=== PATIENT | female | born 1995 | race Caucasian/White ===

== ENCOUNTER 2022-10-06 09:00 | Outpatient (AMB) | payer BC, SELFPAY ==
--- NOTE | 2022-10-06 09:20 | MHC.OFFWIV ---
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 In the last week patient has been complaining of headaches, slurred speech, feeling tired. She was seen at a local emergency room where a CT scan and chest x-ray was done. The CT scan of the head was unremarkable. She was sent home on no medications. Patient reports that she has history of anxiety in the past. She could not tolerate medications due to skin reactions. Physical Exam Vital Signs: Last Vital Signs Temp 96.5 F L 10/06/22 09:25 Pulse 94 10/06/22 09:25 BP 112/60 10/06/22 09:25 Pulse Ox 96 10/06/22 09:25 Oxygen Delivery Method Room Air 10/06/22 09:25 Const General: cooperative and healthy appearing Nutritional Appearance: well nourished Orientation/consciousness: patient oriented x3 Limitations: no limitations HEENT Head: Yes normal to inspection Eyes General: appearance normal, both eyes and all related structures Neck Neck: Yes normal visual inspection Chest Chest palpation & inspection: normal palpation of entire chest wall Resp Effort & Inspection: normal respiratory effort Cardio Other: Tachycardia. Neuro General: patient oriented x3 Assessment & Plan Assessment & Plan (1) Generalized anxiety disorder: Code(s): F41.1 - Generalized anxiety disorder Plan: Thyroid disorder should be ruled out. Blood work has been ordered. Clonazepam and meloxicam called in. Patient was encouraged to see a primary care provider for start of regular anxiety medications. Orders: Orders Basic Metabolic Panel Today F41.1 - Generalized anxiety disorder Liver Panel Today F41.1 - Generalized anxiety disorder Thyroid Stimulating Hormone Today F41.1 - Generalized anxiety disorder Complete Blood Count no Diff Today F41.1 - Generalized anxiety disorder UA and rflx microscopic Today F41.1 - Generalized anxiety disorder Erythrocyte Sedimentation Rate Today F41.1 - Generalized anxiety disorder Medications: New clonazepam (Klonopin) administer 30 minutes before bedtime 0.5 mg PO BEDTIME 10 tabs 0RF meloxicam 15 mg PO DAILY 14 tabs 0RF Coding Level of Care Code Est Pt Level 4 (05304) Diagnoses Generalized anxiety disorder F41.1
[2022-10-06 09:25] VITALS: BP 112/60; PULSE 94; TEMP 35.8; O2SAT 96
== END 2022-10-06 10:06 | disposition home or self-care (01) ==
PROVIDERS: Visit Provider Internal Medicine
DX: F41.1 Generalized anxiety disorder (principal)
CPT/HCPCS: 99214

== ENCOUNTER 2022-11-19 09:03 | Outpatient (AMB) | payer BC, SELFPAY ==
[2022-11-19 09:12] VITALS: BP 116/70; PULSE 85; RESP 12; TEMP 36.4; O2SAT 99; BMI 21.1
--- NOTE | 2022-11-19 09:12 | MHC.PC.OV ---
Vital Signs 11/19/22 09:12 Height 5 ft 9 in Weight 143 lb BMI 21.1 BP 116/70 Blood Pressure Location Lt brachial Position Sitting Respiration 12 Pulse 85 Pulse Source Pulse Oximeter Temp 97.6 F Temp Source Temporal Artery Scan Pulse Oximetry (%) 99 Oxygen Delivery Method Room Air Intake Visit Reasons: New patient-requesting physical Intake Note: Patient states that she has been more concerned about her mental health. Patient states that she would like referrals to OBGYN, Cardiology, Dermatology. Patient would like cardiology referral due to her having open heart surgery as a child. 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 Required: No Accompanied by: Self / Same As Patient Allergies Penicillins Adverse Reaction (Intermediate, Verified 11/19/22 09:46) Rash Medication List - Last Reconciled 11/19/22 by Paloma Pastor CNP alprazolam (Xanax) 0.25 mg PO DAILY PRN Tobacco use date assessed: 11/19/22 Dental Screening Dental Screen Date: 11/19/22 Did you have a dental visit in the last 12 months?: Yes Did you have a dental problem in the last 6 months where you did not have access to dental care?: No Was dental information given to patient?: Patient has dentist HPI HPI Comments History of Present Illness Details 27-year-old female presents to [facility]. She notes she relocated to [facility] from [place] in July 2022. She was last evaluated by her from PCP in [place] a month ago. She notes she had routine blood work done at [facility] 2 weeks ago. She reports PMH significant for generalized anxiety disorder and depression. 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 She states she has weekly telemedicine with a therapist. She notes she takes Xanax 0.25 mg daily as needed with controlled symptoms. She reports occasional feeling of palpations which she states may be related to anxiety. She denies acute symptoms at this time. She requests cardiology evaluation. She notes she is sexually active, in a monogamous relationship, and has no concerns for STD. She states her last pap smear test was on March 2022: normal. She requests to be referred to GIS DATABASE ADMINISTRATOR in [place]. She reports facial bumps and moles on her neck. She requests dermatology referral. 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 1. Little interest or pleasure in doing things: several days 2. Feeling down, depressed, or hopeless: several days 3. Trouble falling or staying asleep, or sleeping too much: several days 4. Feeling tired or having little energy: several days 5. Poor appetite or overeating: several days 6. Feeling bad about yourself - or that you are a failure or have let yourself or your family down: several days 7. Trouble concentrating on things, such as reading the newspaper or watching television: several days 8. Moving or speaking so slowly that other people could have noticed. Or the opposite - being so fidgety or restless that you have been moving around a lot more than usual: several days 9. Thoughts that you would be better off or of hurting yourself in some way: not at all Total score: 8 Depression Screening Interpretation: Positive Depression Screening Follow-up: Existing condition and In treatment Source: Developed by Drs. Darius Bradley, Susy Hagan, Hayes Lange and colleagues, with an educational sharda from [employer]. Thrive Questionnaire Date Thrive assessed: 11/19/22 I am a: Patient What is your living situation today?: I have a steady place to live Within the past 12 months, did the food you bought not last and you didn't have the money to get more?: Never true Within the past 12 months, did you worry whether your food would run out before you got money to buy more?: Never true Do you have trouble paying for medicines?: No Do you have trouble getting transportation to medical appointments?: No Do you have trouble paying your heating and electricity bill?: No Do you have trouble taking care of your child, family member or friend?: No Do you have trouble with day-to-day activities such as bathing, preparing meals, shopping, managing finances, etc.?: No Are you currently unemployed and looking for a job?: No Are you interested in more education?: No Please select the resources that you would like help with: None Currently or been in a relationship where the following occur: no concerns reported AUDIT C Alcohol Use Questionnaire (AUDIT-C) 1. How often do you have a drink containing alcohol?: Monthly or less 2. How many drinks containing alcohol do you have on a typical day when you are drinking?: 1 or 2 3. How often do you have six or more drinks on one occasion?: Never Total Score: 1 ELAINE-7 AMB Questionnaire ELAINE-7 Date ELAINE - 7 assessed: 11/19/22 Feeling nervous, anxious, or on edge: 3 = Nearly every day Not being able to stop or control worryin = More than half the days Worrying too much about different things: 2 = More than half the days Trouble relaxin = More than half the days Being so restless that it is hard to sit still: 1 = Several days Becoming easily annoyed or irritable: 1 = Several days Feeling afraid as if something awful might happen: 1 = Several days Total ELAINE-7 score (0-4 normal; 5-9 mild; 10-14 moderate; 15-21 severe): 12 Source: Developed by Drs. Darius Bradley, Susy Hagan, Hayes Lange and colleagues, with an educational sharda from [employer]. Review of Systems Const Details: Denies chills, Denies fatigue, Denies fever(s), Denies headache(s) and Denies weakness HEENT Denies change in vision, Denies dizziness, Denies headache(s), Denies hearing loss, Denies nasal congestion, Denies sinus pain, Denies sinus pressure and Denies sore throat Card Denies chest pain, Denies lightheadedness, Denies dyspnea and Denies other (palpitations) Resp Denies cough, Denies dyspnea and Denies wheezing GI Denies abdominal pain, Denies melena, Denies hematochezia, Denies change in bowel habits, Denies dyspepsia and Denies nausea Denies hematuria and Denies dysuria Musc Denies abnormal gait, Denies myalgias, Denies arthralgias, Denies numbness and Denies tingling Skin/Breast Reports facial bumps and moles on her neck, Denies rash, Denies unusual bruising and Denies wounds Neuro Denies abnormal gait, Denies dizziness, Denies headache(s), Denies memory loss, Denies numbness, Denies Sensory deficit (Neuro), Denies tingling and Denies weakness Psych Reports anxiety, Reports depression and Denies memory loss Endo Denies cold intolerance, Denies fatigue, Denies heat intolerance, Denies polydipsia and Denies polyuria Aleks/Lymph Denies easy bleeding and Denies easy bruising Aller/Immun Denies wheezing Physical exam (Primary Care) Vital Signs: Last Vital Signs Temp 97.6 F 11/19/22 09:12 Pulse 85 11/19/22 09:12 Resp 12 11/19/22 09:12 BP 116/70 11/19/22 09:12 Pulse Ox 99 11/19/22 09:12 Oxygen Delivery Method Room Air 11/19/22 09:12 BMI result Body Mass Index 21.1 Tobacco/Smoking Status: Tobacco use Status Tobacco use date assessed 11/19/22 11/19/22 09:38 Patient Tobacco Use Status Never used Tobacco 11/19/22 09:38 e-Cigarette/Vaping Use Never Used 11/19/22 09:38 PHQ-9: PHQ-9 Score PHQ-9: Total score 8 11/19/22 10:01 Depression Screening Interpretation: Positive Depression Screening Follow-up: Existing condition and In treatment Thrive Assessment: Date of Thrive Assessment Date Thrive assessed 11/19/22 11/19/22 09:38 Currently or been in a relationship where the following occur: no concerns reported Const Other: General: no acute distress, well developed, alert and awake Nutritional Appearance: well nourished Orientation/consciousness: patient oriented x3 HENMT Head: Yes normocephalic and Yes atraumatic Ears: hearing grossly normal bilaterally and TM's normal bilaterally General nose exam: Normal external nose present and Normal nares present Mouth: Normal oral and palatal mucosa present and moist mucous membranes Teeth and gingiva: dentition normal Throat: Yes oropharynx normal Eyes Pupils: Equal, round and reactive pupils present and Pupil accommodation reflex normal EOM: EOMs intact bilaterally Neck Neck: Yes normal visual inspection, Yes no lymphadenopathy and Yes trachea midline Thyroid: Thyroid normal Carotids: no bruits Lymphatic: no lymphadenopathy noted Chest Chest palpation & inspection: normal inspection of the chest Resp Effort & Inspection: normal respiratory effort Auscultation: clear to auscultation bilaterally Cardio Rate: regular rate Rhythm: regular rhythm Heart sounds: S1 normal heart sound present, S2 normal heart sound present, no gallops, no murmurs and no rubs Bruits: no abdominal aortic bruits and no carotid bruits GI Palpation (GI): No Abdominal aortic bruit present, Soft to palpation, nontender, No hepatosplenomegaly present and No Rebound tenderness present Auscultation: normal bowel sounds General: Yes no CVA tenderness Back/Spine/Pelvis Back: no CVA tenderness Cervical Spine: cervical ROM normal and No Cervical spine tenderness Thoracic/Lumbar Spine: thoraco-lumbar ROM normal, No pain with thoraco-lumbar ROM, No thoracic spinal tenderness and No lumbar spinal tenderness Skin General: warm and dry. Normal skin color. Normal skin turgor Lesions: Few, pink, slightly raised, pimple-like lesion to her forehead; too small, dark-brown moles noted to the left side of her neck Rashes: no rashes Trauma: no lacerations or abrasions Wounds: no wounds Nails: normal Neuro General: patient oriented x3, gait normal and CN's II-XI intact bilaterally Cranial nerves: Yes Equal, round and reactive pupils present Cognition (Neuro): normal cognition Gait exam (Neuro): Normal gait present Motor exam (neuro): 5/5 motor strength present throughout Sensory Exam: No Sensory deficit (Neuro) Deep tendon reflexes (DTR's): Right patellar reflex intensity grade: 2+ and Left patellar reflex intensity grade: 2+ Extrem General: Yes normal to inspection, No edema and No calf tenderness Psych Appearance: grossly normal Affect: normal affect Attitude: cooperative Thought process: Normal thought process present Assessment and Plan Assessment & Plan (1) Generalized anxiety disorder: Code(s): F41.1 - Generalized anxiety disorder Plan: ELAINE-7 and PHQ-9 scores revealed moderate anxiety and mild depression respectively Continue to take Xanax as prescribed Continue follow-up with therapist as planned Routine exercise encouraged Follow-up in 1 month or return sooner with worsening or new symptoms Verbalized understanding and agreed with treatment plan. (2) Depression: Code(s): F32.A - Depression, unspecified Plan: As above (3) Multiple lesions of face: Code(s): L98.9 - Disorder of the skin and subcutaneous tissue, unspecified Plan: Few, pink, slightly raised, pimple-like lesion to her forehead; too small, dark-brown moles noted to the left side of her neck Referred to dermatology Return with new or worsening signs and symptoms Verbalized understanding and agreed with treatment plan. (4) Normal physical examination, routine: Code(s): Z00.00 - Encounter for general adult medical examination without abnormal findings Plan: No significant physical restrictions or limitations noted She had routine blood work done at [facility] in September in October 2022. 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 She denies acute symptoms at this time. She requests cardiology evaluation. 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 Orders: Referrals Cardiology Referral R00.2 - Palpitations Dermatology Referral L98.9 - Disorder of the skin and subcutaneous tissue, unspecified GIS DATABASE ADMINISTRATOR Referral Z12.4 - Encounter for screening for malignant neoplasm of cervix Coding Level of Care Code New Pt Level 3 (41094) New Pt Prev Care [id number]([id number] Diagnoses Generalized anxiety disorder F41.1 Depression F32.A Multiple lesions of face L98.9 Normal physical examination, routine Z00.00 Pap smear for cervical cancer screening Z12.4 Palpitations R00.2
== END 2022-11-19 10:13 | disposition home or self-care (01) ==
PROVIDERS: Visit Provider Nurse Practitioner Family
DX: Z00.00 Encounter for general adult medical examination without abnormal findings (principal); F41.1 Generalized anxiety disorder; F32.A Depression, unspecified; L98.9 Disorder of the skin and subcutaneous tissue, unspecified; R00.2 Palpitations
CPT/HCPCS: 99385

== ENCOUNTER 2023-02-26 12:49 | Outpatient (AMB) | payer BC, SELFPAY ==
[2023-02-26 12:58] VITALS: BP 120/70; PULSE 86; BMI 21.2
--- NOTE | 2023-02-26 12:58 | MHC.OFFVIS ---
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 She has moved around a lot in the recent time related to her job and has recently moved to this area. She has had prior to this regular follow-up with Cardiology and having echocardiograms although she says in the last 2 years she has not had any follow-up of workup. Recently after moving in summer she had a lot of stress and was getting anxious and she was noticing palpitations. She says the palpitations of funny and shoots mainly feel it at rest when she was resting and feel like heart was racing rapidly and that would subside after she would relax otherwise he will continue to go on. At other times she will also feel kind of slow strong heartbeats and fluttering in her chest. She got very anxious and was initially treated for general anxiety disorder. However she has been referred here for further evaluation. Patient denies any exertional symptoms. She does not exercise on a routine basis but says remains very active and denies any symptoms of shortness of breath, orthopnea, PND. She says over the last couple months as she has calmed down she says her symptoms have improved. She also, of antianxiety medications. 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@[employer] Cognitive needs: No Hearing needs: No Vision needs: Yes Review of Systems Const Denies chills, Denies daytime sleepiness, Denies fatigue, Denies fever(s), Denies frequent falls, Denies poor appetite, Denies snoring, Denies stops breathing during sleep, Denies weakness, Denies weight gain and Denies weight loss Eyes Denies loss of vision ENT Denies dizziness and Denies hearing loss Card Denies chest pain, Denies claudication, Denies leg edema, Denies lightheadedness, Denies palpitations, Denies dyspnea, Denies dyspnea on exertion and Denies orthopnea Resp Denies cough, Denies excessive phlegm production, Denies dyspnea, Denies dyspnea on exertion, Denies snoring and Denies wheezing GI Denies abdominal pain, Denies hematochezia, Denies change in bowel habits, Denies nausea and Denies vomiting Denies urinary frequency and Denies dysuria Musc Denies arthralgias, Denies muscle weakness, Denies numbness and Denies other (frequent falls) Skin/Breast Denies nail changes and Denies rash Neuro Denies Abnormal speech present, Denies dizziness, Denies frequent falls, Denies loss of vision, Denies memory loss, Denies numbness and Denies weakness Psych Denies depression and Denies memory loss Endo Denies fatigue and Denies palpitations Aleks/Lymph Reports easy bruising and Reports other (anemia) Aller/Immun Denies wheezing Physical Exam Vital Signs: Last Vital Signs Pulse 86 02/26/23 12:58 BP 120/70 02/26/23 12:58 BMI result Body Mass Index 21.2 Const General: cooperative, comfortable, no acute distress, well developed, alert, awake, Physically active and well groomed Nutritional Appearance: well nourished and thin Orientation/consciousness: patient oriented x3 Limitations: no limitations HEENT Head: Yes normocephalic and Yes atraumatic Neck Neck: Yes trachea midline, Yes supple and Yes no JVD Resp Effort & Inspection: normal respiratory effort Auscultation: clear to auscultation bilaterally Cardio Jugular venous distension: no JVD Palpation: normal PMI Rate: regular rate Rhythm: regular rhythm Heart sounds: S1 normal heart sound present, S2 normal heart sound present, no click, no gallops and Murmur heart sound present systolic decrescendo, crescendo, at the left sternal border and at the right sternal border GI Auscultation: normal bowel sounds Skin General skin exam: no rashes or lesions noted Neuro General: patient oriented x3 and no focal motor deficits Speech: No Abnormal speech present Extrem General: Yes no clubbing, cyanosis or edema Psych Appearance: grossly normal Office Procedures EKG Details: EKG shows normal sinus rhythm with rightward axis with diffuse nonspecific T wave changes especially in anterior leads [id number], Complete Assessment & Plan Assessment & Plan (1) Palpitations: Code(s): R00.2 - Palpitations Plan: Patient with symptoms of palpitations. Some of the symptoms appear to be probably related to extra systoles such as PACs or PVCs. Also some of the symptoms could represent SVT may be atrial fibrillation. Not sure at this point time. She is currently not on any medications. Her symptoms are worse when she was increasingly stressed out. We talked about stress mitigation strategies. Avoidance of stimulants such as caffeine and alcohol was discussed. Participating in regular physical activity was discussed. I will obtain a 14 day Holter monitor to further assess for the arrhythmias and then that would guide treatment although treatment will also need structural evaluation of the heart, see below. (2) Adult congenital heart disease: Comment: Possible arterial switch operation for transposition of great arteries at 6 days of age in [place]. 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 I am taking the liberty to refer her to an adult congenital heart disease specialist at [facility] Dr. Jennings for further evaluation of structural heart disease and follow-up for any long-term implications after such surgeries. I have advised patient strongly to obtain her records and also obtain her last echocardiogram. She does have a systolic murmur which could be related to systemic valve stenosis. Will need further evaluation by echocardiogram which should be done by person familiar with long-term implications of since surgery. Further treatment based on the findings. Will follow up in the clinic in 2 months time Coding Level of Care Code New Pt Level 4 (67061) Diagnoses Palpitations R00.2 Adult congenital heart disease Q24.9 CPT Codes EKG - CPT: [id number], Complete ([id number])
== END 2023-02-26 13:26 | disposition home or self-care (01) ==
PROVIDERS: Visit Provider Internal Medicine Cardiovascular Disease
DX: R00.2 Palpitations (principal); Q24.9 Congenital malformation of heart, unspecified
CPT/HCPCS: 93010; 99204

== ENCOUNTER → 2023-02-26 12:49 | Outpatient (BNVA) | payer BC, SELFPAY | PROVIDERS: Visit Provider Internal Medicine Cardiovascular Disease | DX: R00.2 Palpitations (principal); Q24.9 Congenital malformation of heart, unspecified | CPT/HCPCS: 93005 ==

== ENCOUNTER 2023-03-11 14:40 | Outpatient (AMB) | payer BC, SELFPAY ==
--- NOTE | 2023-03-11 14:41 | A.OFFVIS_ITS ---
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 She moved from [place] in July. She is living with her boyfriend and they just got engaged on [place]. She has been actually trying to get for little while so she would be very happy if she was and her periods little tiny bit late her last period was 02/09/2023. She gets regular periods, she would like a blood test for . 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 She has not been checked in a long time but she thinks that is no problem but she is a middle of of cardiac evaluation just to check things out and will be getting a Holter monitor in a couple of weeks.. She and her fiance both work at [employer] in different positions. She works in [employer] and he works in food management. She has been feeling a little queasy but it would be hard to say what the cause would be she is open to blood work for STIs while she is getting the blood work for the test too. 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@[employer] Cognitive needs: No Hearing needs: No Vision needs: Yes Female Reproductive History Menstrual Age of Menarche: 11 Duration of menses: 3-5 days Date of last menstrual period: 02/09/23 control method: none Total pregnancies: 0 History of abnormal pap smear: Yes (2019 +HPV) Physical Exam Vital Signs: Last Vital Signs BP 114/72 03/11/23 14:48 BMI result Body Mass Index 22.1 Const General: healthy appearing, comfortable, no acute distress, well developed and alert Nutritional Appearance: average body habitus Orientation/consciousness: patient oriented x3 Limitations: no limitations HEENT Head: Yes normocephalic Neck Neck: Yes normal visual inspection Thyroid: Thyroid normal Chest Other: Midsternal scar from cardiac surgery as 6-day-old for transposition of the great vessels. Chest palpation & inspection: normal inspection of the chest Breast/axilla inspection: normal inspection of the breasts and normal inspection of the axillae Breast/axilla palpation: normal palpation of the breasts and normal palpation of the axillae Resp Effort & Inspection: normal respiratory effort GI Inspection: Yes normal to inspection, No Abdominal wall edema and No distended Palpation (GI): Soft to palpation and nontender Other: Normal vagina cervix pink nulliparous with clear mucus slightly friable with Pap uterus is small midposition mobile nontender good tone with Kegel adnexa not enlarged nontender. General: Yes bladder normal to palpation External Female Exam: normal external appearance and normal appearance of the urethra Speculum Exam - Vagina: normal appearance of the vagina, normal palpation and normal vaginal discharge Speculum Exam - Cervix: normal appearance of the cervix, normal palpation and nontender Bimanual exam- vagina & uterus: normal bimanual exam, normal palpation, uterine size normal, bladder normal to palpation, consistency normal, normal palpation, uterine mobility normal, uterine shape normal, No Cervical tenderness present, non-tender and no cervical motion tenderness Bimanual Exam- Adnexa, other: normal adnexae, no masses, normal and No adnexal tenderness Neuro General: patient oriented x3 Results Reviewed Results Reviewed: Urine hCG is negative, Assessment & Plan Assessment & Plan (1) Pap smear for cervical cancer screening: Comment: Patient states she had an abnormal in 2019 with positive HPV followed by a colposcopy, normal Pap since then, Pap done 03/11/2023. Code(s): Z12.4 - Encounter for screening for malignant neoplasm of cervix (2) History of open heart surgery: Comment: As a child. Code(s): Z98.890 - Other specified postprocedural states (3) Encounter for screening examination for sexually transmitted disease: Code(s): Z11.3 - Encounter for screening for infections with a predominantly sexual mode of transmission (4) Well woman exam with routine gynecological exam: Code(s): Z01.419 - Encounter for gynecological examination (general) (routine) without abnormal findings Plan -----Discussed in this visit the following: healthy balanced diet, regular and consistent exercise, getting recommended health screens, doing the best she can for her particular health concerns, kegel exercises, pap smear screening and followup recommendations, mammography screening and SBE, normal changes in cycles in her life stage--- . I recommend any multivitamin with folic acid in it to help prevent neural tube defects. HCG has been ordered and she is on the portal so she can get the results herself if she has any questions about the results or if they are positive she may call the following day to review it we would call her if there was anything positive as well and discussed care from there I did also discuss that for any when with a history of a anything cardiac we would recommend that she receive all of her care if in when she does get at [facility] as she may need additional cardiac evaluations depending on the circumstances. Discussed that in there were probably be an evaluation of the fetus to ensure that there is no cardiac defect as well. Pap smear was done because of her history of abnormal with positive HPV colposcopy negative in 2019. RTC 1 year. Orders: Orders HCG Quantitative Today N92.6 - Irregular menstruation, unspecified, Z01.419 - Encounter for gynecological examination (general) (routine) without abnormal findings, Z11.3 - Encounter for screening for infections with a predominantly sexual mode of transmission, Z12.4 - Encounter for screening for malignant neoplasm of cervix, Z98.890 - Other specified postprocedural states Hepatitis B Surface Antigen Today N92.6 - Irregular menstruation, unspecified, Z01.419 - Encounter for gynecological examination (general) (routine) without abnormal findings, Z11.3 - Encounter for screening for infections with a predominantly sexual mode of transmission, Z12.4 - Encounter for screening for malignant neoplasm of cervix, Z98.890 - Other specified postprocedural states Hepatitis C Antibody Today N92.6 - Irregular menstruation, unspecified, Z01.419 - Encounter for gynecological examination (general) (routine) without abnormal findings, Z11.3 - Encounter for screening for infections with a predominantly se xual mode of transmission, Z12.4 - Encounter for screening for malignant neoplasm of cervix, Z98.890 - Other specified postprocedural states HIV Ab/Ag Today N92.6 - Irregular menstruation, unspecified, Z01.419 - Encounter for gynecological examination (general) (routine) without abnormal findings, Z11.3 - Encounter for screening for infections with a predominantly sexual mode of transmission, Z12.4 - Encounter for screening for malignant neoplasm of cervix, Z98.890 - Other specified postprocedural states Syphilis Screen Today N92.6 - Irregular menstruation, unspecified, Z01.419 - Encounter for gynecological examination (general) (routine) without abnormal findings, Z11.3 - Encounter for screening for infections with a predominantly sexual mode of transmission, Z12.4 - Encounter for screening for malignant neoplasm of cervix, Z98.890 - Other specified postprocedural states Pap Smear Today Z12.4 - Encounter for screening for malignant neoplasm of cervix Bacterial Vaginosis Panel Today Z11.3 - Encounter for screening for infections with a predominantly sexual mode of transmission CT NG by PCR Today Z11.3 - Encounter for screening for infections with a predominantly sexual mode of transmission Coding Level of Care Code New Pt Prev Care 18-39yr([id number] Diagnoses Pap smear for cervical cancer screening Z12.4 History of open heart surgery Z98.890 Encounter for screening examination for sexually transmitted disease Z11.3 Well woman exam with routine gynecological exam Z01.419
[2023-03-11 14:48] VITALS: BP 114/72; BMI 22.1
== END 2023-03-11 15:23 | disposition home or self-care (01) ==
LOC: HO.HWS 14:40
PROVIDERS: Visit Provider Advanced Practice Midwife
DX: Z01.419 Encounter for gynecological examination (general) (routine) without abnormal findings (principal); Z32.02 Encounter for pregnancy test, result negative
CPT/HCPCS: 99385

== ENCOUNTER 2023-03-11 14:40 | Outpatient (REF) | payer BC, SELFPAY ==
[2023-03-14 03:14] LABS: HPV mRNA E6/E7 rflx Not Detected (Not Detected)
== END 2023-03-11 14:41 | disposition home or self-care (01) ==
LOC: HO.LNP 14:40
PROVIDERS: Visit Provider Advanced Practice Midwife
DX: Z01.419 Encounter for gynecological examination (general) (routine) without abnormal findings (principal); N92.6 Irregular menstruation, unspecified; Z98.890 Other specified postprocedural states; Z32.02 Encounter for pregnancy test, result negative
CPT/HCPCS: 81025; 87624; 88142

== ENCOUNTER 2023-03-11 15:25 | Outpatient (REF) | payer BC, SELFPAY ==
[2023-03-11 17:25] LABS: HCG Quantitative < 2 mIU/mL
[2023-03-12 02:49] LABS: CT PCR NOT DETECTED (Not Detect.); NG PCR NOT DETECTED (Not Detect.)
[2023-03-12 12:48] LABS: BV Int Neg Control Negative (Negative); BV Int Pos Control Positive (Positive)
== END 2023-03-11 15:26 | disposition home or self-care (01) ==
LOC: HO.HHCL 15:25
PROVIDERS: Visit Provider Advanced Practice Midwife
DX: Z01.419 Encounter for gynecological examination (general) (routine) without abnormal findings (principal); N92.6 Irregular menstruation, unspecified; Z98.890 Other specified postprocedural states; Z20.2 Contact with and (suspected) exposure to infections with a predominantly sexual mode of transmission
CPT/HCPCS: 0353U; 36415; 84702; 87480; 87510; 87660

== ENCOUNTER 2023-03-24 18:02 | Outpatient (AMB) | payer BC, SELFPAY ==
--- NOTE | 2023-03-24 17:52 | A.OFFPC_ITS ---
Intake Visit Reasons: Been fatigued, dizzy, and stiff body muscles Safety Deposit Boxes Custodian Required: No Allergies Penicillins Adverse Reaction (Intermediate, Verified 03/24/23 18:04) Rash Medication List - Last Reconciled 03/24/23 by Paloma Pastor CNP No Known Home Meds Tobacco use date assessed: 11/19/22 HPI HPI Comments History of Present Illness Details Patient presents for a telehealth visit with complaint of intermittent frontal headaches, dizziness, sluggish muscle movements, and feeling off balance. She notes that her symptoms have been ongoing since January. No fall, injury, or trauma She denies recreational drug use or significant alcohol consumption She admits to adequate hydration She notes that her anxiety symptoms are currently well controlled. She is no long taking Klonopin She denies acute symptoms at this time [facility] Medical History (Updated 03/24/23 @ 18:11 by Paloma Pastor CNP) Adult congenital heart disease No pertinent past medical history No pertinent family history Surgical History (Updated 03/11/23 @ 15:20 by Zoila Ceron CNM) History of open heart surgery Social History (Updated 03/11/23 @ 14:47 by Heidi Beavers [facility]) Housing: House Alcohol intake: current Alcohol intake frequency: holidays/special occasions only Patient Tobacco Use Status: Never used Tobacco e-Cigarette/Vaping Use: Never Used service: No Current occupational status: employed 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 Darius Bradley, Susy Hagan, Hayes Lange and colleagues, with an educational sharda from [employer]. Review of Systems Const Details: Const Denies chills, Denies fatigue, Denies fever(s), Denies headache(s) and Denies weakness ENT Denies dizziness and Denies headache(s) Card Denies chest pain, Denies lightheadedness, Denies dyspnea and Denies other (Palpitations) Resp Denies cough, Denies dyspnea, Denies wheezing and Denies other ( shortness of breath) GI Denies abdominal pain, Denies melena, Denies hematochezia, Denies change in bowel habits, Denies dyspepsia and Denies nausea Denies hematuria and Denies dysuria Musc Denies abnormal gait, Denies myalgias, Denies arthralgias, Denies numbness and Denies tingling Skin/Breast Denies rash, Denies unusual bruising and Denies wounds Neuro Denies abnormal gait, Denies dizziness, Denies headache(s), Denies memory loss, Denies numbness, Denies Sensory deficit (Neuro), Denies tingling and Denies weakness Psych Denies anxiety, Denies depression, Denies memory loss Endo Denies cold intolerance, Denies fatigue, Denies heat intolerance, Denies polydipsia and Denies polyuria Aller/Immun Denies wheezing Physical exam (Primary Care) Tobacco/Smoking Status: Tobacco use Status Tobacco use date assessed 11/19/22 03/24/23 17:52 Patient Tobacco Use Status Never used Tobacco 03/24/23 17:52 e-Cigarette/Vaping Use Never Used 03/24/23 17:52 Thrive Assessment: Date of Thrive Assessment Date Thrive assessed 11/19/22 03/24/23 17:52 Const Other: Telehealth. No physical exam Telehealth Telehealth Location of provider rendering services: practice address Location of patient: address on file Patient Identification confirmed using: Name, : Yes Telehealth method: voice only Patient verbally consented to treatment: Yes Patient verbally consented to billing insurance company: Yes Patient informed of any privacy concerns related to visit: Yes Assessment and Plan Assessment & Plan (1) Dizziness: Code(s): R42 - Dizziness and giddiness Plan: Intermittent frontal headaches, dizziness, sluggish muscle movements, and fe eling off balance for about 2 months Adequate hydration encouraged May take Tylenol ibuprofen for pain or discomfort Labs ordered. Advised to fast for 12 hours, may drink water only, and get blood work done before next visit Follow-up in 2-3 weeks or return sooner with worsening or new symptoms Verbalized understanding and agreed with treatment plan (2) Headache: Code(s): R51.9 - Headache, unspecified Plan: As above Orders: Orders Complete Blood Count Auto Diff Today R42 - Dizziness and giddiness, R51.9 - Headache, unspecified Lipid Panel Today R42 - Dizziness and giddiness, R51.9 - Headache, unspecified UA CC w/rflx Micro + Cult Today R42 - Dizziness and giddiness, R51.9 - Headache, unspecified Comprehensive [place]. Panel Fast Today R42 - Dizziness and giddiness, R51.9 - Headache, unspecified TSH reflex Free T4 Today R42 - Dizziness and giddiness, R51.9 - Headache, unspecified Erythrocyte Sedimentation Rate Today R42 - Dizziness and giddiness, R51.9 - Headache, unspecified Coding Level of Care Code Tele Est Pt Level 3 (33349) Diagnoses Dizziness R42 Headache R51.9 Time Spent (min) 20
== END 2023-04-01 13:10 | disposition home or self-care (01) ==
LOC: HO.HMGFM 18:02
PROVIDERS: PCP Nurse Practitioner Family; Visit Provider Nurse Practitioner Family
DX: R42 Dizziness and giddiness (principal); R51.9 Headache, unspecified
CPT/HCPCS: 99442

== ENCOUNTER 2023-03-25 07:44 | Outpatient (REF) | payer BC, SELFPAY ==
[2023-03-25 11:19] LABS: MANUAL DIFF FLAG NO
[2023-03-25 11:37] LABS: Appearance Urine Clear; Color Urine Yellow; Glucose Urine UA Negative (Negative); Leukocyte Esterase Urine Trace (Negative); Nitrite Urine Negative (Negative); PH 5.5 (5.0-9.0); UMIC TRIGGER UACC YES; Urine Blood Negative (Negative); Urine Ketones Negative (Negative); Urine Protein Negative (Neg-Trace)
[2023-03-25 11:44] LABS: Basophils Percent Auto 0.6 % (0-2); Eosinophils Absolute Auto 0.1 X10*3/uL (0.0-0.4); Eosinophils Percent Auto 2.8 % (0-4); Hematocrit 41.7 % (37.0-47.0); Hemoglobin 14.6 g/dl (12.0-16.0); Imm Gran Abs Auto 0.01 X10*3/uL (0.00-0.03); Imm Gran Pct Auto 0.3 % (0.0-0.4); Lymphocytes Percent Auto 30.3 % (20-40); Mean Corpuscular Hemoglobin 30.8 pg (27.0-33.0); Mean Platelet Volume 10.5 fL (9.4-12.3); Monocytes Absolute Auto 0.4 X10*3/uL (0.1-1.2); Monocytes Percent Auto 11.3 % (2-11); Neutrophils Absolute Auto 1.8 x10*3/uL (2.0-8.3); Neutrophils Percent Auto 54.7 % (45-73); Platelet Count 177 X10*3/uL (160-400); Red Blood Count 4.74 X10*6/uL (4.20-5.50); Red Cell Distribution Width 12.1 % (11.0-16.0); White Blood Count 3.2 X10*3/uL (4.8-10.8)
[2023-03-25 12:01] LABS: Alanine Aminotransferase 24 U/L (0-31); Albumin Level 4.5 g/dL (3.5-5.0); Alkaline Phosphatase 35 U/L (39-117); Anion Gap 12 (12-20); Aspartate Amino Transferase 16 U/L (5-31); Bilirubin Total 0.9 mg/dL (0.0-1.0); Blood Urea Nitrogen 11 mg/dL (9-16); Calcium 9.2 mg/dL (8.4-10.2); Carbon Dioxide 28 mmol/L (22-29); Chloride 105 mmol/L (96-108); Cholesterol 169 mg/dL (<200); Estimated Glomerular Filt Rate > 60; Glucose Fasting 102 mg/dL (60-99); HDL Cholesterol 68 mg/dL (>40); LDL Cholesterol Calculated 85 mg/dL (<100); Potassium 3.7 mmol/L (3.3-5.1); Sodium 141 mmol/L (135-145); Total Protein 7.2 g/dL (6.5-8.0); Triglycerides 84 mg/dL (<150)
[2023-03-25 12:14] LABS: Bacteria Urine 2+ (None Seen); Hyaline Casts Urine 0-2 /LPF (0-2); RBC Urine 0-2 /HPF (0-2); WBC Urine 0-5 /HPF (0-5)
[2023-03-25 12:18] LABS: TSH reflex Free T4 2.88 uIU/mL (0.32-4.0)
[2023-03-25 12:20] LABS: Erythrocyte Sedimentation Rate 1 MM/HR (0-20)
== END 2023-03-25 07:45 | disposition home or self-care (01) ==
LOC: HO.WFDLDS 07:44
PROVIDERS: Visit Provider Nurse Practitioner Family
DX: R51.9 Headache, unspecified (principal); R42 Dizziness and giddiness
CPT/HCPCS: 36415; 80053; 80061; 81001; 84443; 85025; 85652